=== PATIENT | male | born 1970 | race Caucasian/White ===

== ENCOUNTER 2021-04-09 09:37 | Day surgery (SDC) | payer OTHER ==
--- NOTE | 2021-04-09 08:25 | HP ---
DATE OF SURGERY: 04/09/2021 HISTORY OF PRESENT ILLNESS: The patient is a 51 year-old with no prior colonoscopy, no bleeding, no change in bowel movements and no pain. Family history with father had part of colon removed, no known cancer though. The patient denies any abdominal surgery. PAST MEDICAL HISTORY: He denies any chronic illnesses. PAST SURGICAL HISTORY: Right shoulder AC joint repaired in the past. MEDICATIONS: ALLERGIES: PENICILLIN. PERCOCET. FAMILY HISTORY: Cancer, hypertension. Negative for any known colon cancer. SOCIAL HISTORY: No smoking or alcohol abuse. REVIEW OF SYSTEMS: Fourteen systems reviewed. Negative or noncontributory as above and per preadmission questionnaire. PHYSICAL EXAMINATION: GENERAL: No acute distress. HEENT: Sclerae nonicteric. NECK: No JVD. CHEST: Equal excursion, nonlabored breathing. CVS: Regular rate and rhythm. ABDOMEN: Soft. No peritoneal signs. EXTREMITIES: No significant edema. NEURO: Alert, oriented, moving extremities symmetrically. PSYCH: Appropriate mood and affect. IMPRESSION: A 51 year-old in need of screening colonoscopy. I feel he is a candidate. He was shown the risk sheet, explained the procedure in detail including but not limited to bleeding or infection, risk of bowel injury or perforation possibly requiring open procedure, risk of missed or nondiagnosis or incomplete exam possibly requiring barium enema, other studies or procedures, general risk of anesthesia or sedation, risk of bowel prep but not limited to, consent obtained. Will proceed with outpatient colonoscopy.
[2021-04-09] MEDS ORDERED: Lactated Ringers 1,000 ML IV ONE (09:38)
[2021-04-09] MEDS ORDERED: Lactated Ringers 1,000 ML IV SCH (10:00)
[2021-04-09] MEDS ORDERED: DIPRIVAN 200 MG/20 ML IV ONE (12:06)
[2021-04-09 12:40] VITALS: O2SAT 99
[2021-04-09 13:02] VITALS: BP 144/98; PULSE 74
--- NOTE | 2021-04-10 08:37 | OP ---
SURGERY DATE/TIME: 04/09/2021 1141 PREOPERATIVE DIAGNOSIS: Screening colonoscopy. POSTOPERATIVE DIAGNOSES: 1) Small early polyp versus hyperplastic lesion sigmoid colon and rectum. 2) Fair but somewhat limited bowel prep. 3) ASA Class II. 4) Withdrawal time approximately 8 minutes. PROCEDURES: 1) Colonoscopy to cecum. 2) Hot biopsy removal of small early polyp versus hyperplastic lesion in sigmoid colon. 3) Hot biopsy removal of small early polyp versus hyperplastic lesion in rectum. SURGEON: Dr. Andres De Los Santos. ANESTHESIA: MAC. ESTIMATED BLOOD LOSS: Minimal. INDICATIONS: As noted above. Risks and benefits explained in detail but not limited to and consent obtained. DESCRIPTION OF PROCEDURE AND FINDINGS: The patient is taken to the endoscopy room. MAC anesthesia introduced. After official time out and no disagreement with planned procedure, digital rectal exam did not reveal any rectal masses. Video colonoscope inserted and passed up through the somewhat tortuous sigmoid, descending, transverse and ascending colon. Positioned on his back with external pressure the scope able to reach the cecum. Appendiceal orifice and valve were photo documented. Prep overall was fair but a little bit on the limited side particularly in the right colon had some semi-solid liquidy stool this was suction irrigated as clear as possible but did slightly limit the exam for very tiny lesions. Otherwise on slow careful withdrawal of the scope over the next eight minutes, there were no signs of any large polyps, masses or obstructing lesions. He did have small early polyp versus hyperplastic lesion sigmoid colon removed with hot biopsy forceps as well as one in the rectum early polyp versus hyperplastic lesion removed with hot biopsy forceps with brief bursts of cautery. Good hemostasis noted. The scope is withdrawn. The patient tolerated the procedure well. There were no immediate complications. Findings discussed with the family out in the waiting area. I will see him back in the office in a couple of weeks. He did not appear to have any large diverticula. If his polyps are hyperplastic or benign, would benefit from follow up colonoscopy in five years given his prep quality.
== END 2021-04-09 13:00 | disposition home or self-care (01) ==
LOC: SDC 09:37
PROVIDERS: ATTEND Surgery
DX: Z12.11 Encounter for screening for malignant neoplasm of colon (principal); K63.5 Polyp of colon; K62.1 Rectal polyp
CPT/HCPCS: 88305; J2704